=== PATIENT | male | born 1985 | race Caucasian/White ===

== ENCOUNTER 2017-02-01 19:47 | Emergency (ER) | payer BC, MEDICAID ==
[2017-02-01 19:58] VITALS: BP 157/71
--- NOTE | 2017-02-01 20:00 | UC ---
Skin Complaint HPI - HPI Summary HPI Summary: Pt presents with rash to left lower leg. He tells me that his daughter's room has some fleas or bed bugs and that last night he and his removed everything from the room and cleaned everything. Later last night he noticed 4 red circular bites on his lower left leg. 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 He applied triple antibiotic ointment and a bandage. He is in no pain. Denies fever , chills, recent travel, calf pain, SOB, or chest pain. - History of Current Complaint Chief Complaint: [place] Time Seen by Provider: 02/01/17 19:49 Stated Complaint: SKIN COMPLAINT Hx Obtained From: Patient Onset/Duration: Sudden Onset Skin Exposure Onset/Duration: Hours Ago Timing: Constant Onset Severity: Mild Current Severity: Moderate - Allergy/Home Medications Allergies/Adverse Reactions: Allergies Allergy/AdvReac Type Severity Reaction Status Date / Time No Known Allergies Allergy Verified 02/01/17 19:52 Review of Systems Constitutional: Negative Skin: Rash - Left lower leg Respiratory: Negative Cardiovascular: Negative Neurological: Negative Psychological: Negative All Other Systems Reviewed And Are Negative: Yes PMH/Surg Hx/FS Hx/Imm Hx Previously Healthy: Yes Cardiovascular History: Other Other Cardiovascular History: Heart murmur - followed by cardiology - Surgical History Surgical History: Yes Surgery Procedure, Year, and Place: 2012 R cervical lymphnode [facility] 2017 [facility] - Social History Occupation: Employed Full-time Lives: With Family Alcohol Use: Rare Substance Use Type: None Smoking Status (MU): Never Smoked Tobacco - Immunization History Most Recent Influenza Vaccination: Fall 2013 Most Recent Tetanus Shot: 2011 Most Recent Pneumonia Vaccination: None Physical Exam Triage Information Reviewed: Yes Appearance: Well-Appearing, No Pain Distress, Well-Nourished Vital Signs: Initial Vital Signs Temp 99.5 F 02/01/17 19:53 Pulse 100 02/01/17 19:53 Resp 18 02/01/17 19:53 BP 157/71 02/01/17 19:53 Pulse Ox 100 02/01/17 19:53 Vital Signs Reviewed: Yes Neck: Positive: Supple, Nontender, No Lymphadenopathy Respiratory: Positive: Chest non-tender, Lungs clear, Normal breath sounds, No respiratory distress, No accessory muscle use Cardiovascular: Positive: RRR, Pulses Normal - Popliteal and dorsalis pedis, Brisk Capillary Refill Musculoskeletal: Positive: Strength Intact - Left LE, ROM Intact - Left LE Neurological: Positive: Other: - Sensations intact left LE Skin: Positive: Other - On the medial aspect of the lower left leg there is an area of erythema extending from the distal end of the tibia to the lower one third of the tibia (approx 15cm). Within this area of erythema there are scattered vesicles, all <3mm in size, and two small linear open areas <2mm on the superior and inferior portions, respectively. Mild edema. No drainage, pain , or tenderness. Course/Dx - Course Course Of Treatment: Advancing cellulitic rash. Will double cover with Keflex and Bactrim. The area was marked with a purple marking pen today. Pt seems very reliable and will monitor this rash closely. Advised that over the next 24- 48hrs the redness may go up to 1.0cm beyond the huitron, but if it persist longer than 48hrs to go to the ED. He voiced understanding and was in agreement with the plan of care. - Differential Diagnoses - Skin Complaint Differential Diagnoses: Cellulitis, Contact Dermatitis, Eczema, MRSA, Poison Bambi , Poison [place], Scabies, Varicella Zoster - Diagnoses Provider Diagnoses: Cellulitis left leg Discharge - Discharge Plan Condition: Stable Disposition: HOME Prescriptions: Cephalexin CAP* [Keflex CAP*] 500 mg PO BID #20 cap Sulfamethox/Trimethoprim DS* [Bactrim DS 800/160 TAB*] 1 tab PO BID #20 tab Patient Education Materials: Cellulitis (ED) Referrals: Simran Rodarte MD [Primary Care Provider] - Additional Instructions: If you develop a fever, SOB, chest pain, new or worsening symptoms - please call your PCP or go to the ED. Your blood pressure was high at todays visit. Please see your primary provider within 4 weeks for recheck and re-evaluation. 1) Keep area clean and dry. Dress with clean dry dressing daily. May apply triple antibiotic ointment - thin film over affected area. 2) The area of redness has been marked with a purple marking pen. Over the next 24-48hrs you may notice some increasing redness beyond these huitron. If the redness persist after 48hrs beyond the huitron, please go to the Emergency Room.
== END 2017-02-01 20:20 | disposition home or self-care (01) ==
LOC: UCEAST 19:47
DX: L03.116 Cellulitis of left lower limb (principal); R01.1 Cardiac murmur, unspecified
CPT/HCPCS: 99212; G0463